=== PATIENT | male | born 1945 | race Caucasian/White ===

== ENCOUNTER 2016-10-24 22:13 | Emergency (ER) | payer MEDICARE ==
[2016-10-24] MEDS ORDERED: SODIUM CHLORIDE 0.9% 1000ML 1,000 ML IV ONE (22:31)
[2016-10-24 22:46] LABS: BASOPHILS % (AUTO) 1 % (0-3); EOSINOPHILS % (AUTO) 8 % (0-9); HEMATOCRIT 30 % (39-53); MEAN CORPUSCULAR HGB CONC 34.6 gm/dl (32.0-36.0); MONOCYTES % (AUTO) 10.2 % (0-12)
[2016-10-24 22:50] LABS: CALCIUM 8.2 mg/dl (8.5-10.1); POTASSIUM 3.8 mMol/L (3.5-5.1)
[2016-10-24] MEDS ORDERED: SODIUM CHLORIDE 0.9% FLUSH 10 ML SOL IV PRN (22:50)
[2016-10-24 22:52] LABS: MEAN CORPUSCULAR VOLUME 99 fL (80-100)
[2016-10-24 22:55] LABS: ANISOCYTOSIS SLIGHT
[2016-10-25] MEDS ORDERED: SODIUM CHLORIDE 0.9% 1000ML 1,000 ML IV ONE ×2 (01:10→05:15)
[2016-10-25] MEDS ORDERED: BACITRACIN 500 U/GM OIN TOP ONE ×2 (03:44→03:45)
[2016-10-25 06:33] VITALS: BP 149/76; PULSE 76; RESP 14; TEMP 97.7; O2SAT 99
[2016-10-25 06:46] LABS: CALCIUM 7.6 mg/dl (8.5-10.1); POTASSIUM 3.8 mMol/L (3.5-5.1)
== END 2016-10-25 07:42 | disposition home or self-care (01) | DRG 156 ==
LOC: ED 22:13
DX: S02.2XXA Fracture of nasal bones, initial encounter for closed fracture (principal); I10 Essential (primary) hypertension; S00.81XA Abrasion of other part of head, initial encounter; W19.XXXA Unspecified fall, initial encounter; F10.129 Alcohol abuse with intoxication, unspecified
CPT/HCPCS: 36415; 70486; 80048; 80307; 85025; 96365; 96366; 99284; 99285